=== PATIENT | male | born 2005 | race Caucasian/White ===

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

== ENCOUNTER → 2025-06-03 | Outpatient (CLI) | payer OTHER ==
--- NOTE | 2025-06-05 11:35 | MR ---
INDICATION: Patient age:Male; 20 years old; Reason for study: K11.8; H. COMPARISON: Cervical spine radiograph 07/15/2008, ultrasound 12/08/2008. TECHNIQUE: Multi planar, multi sequence imaging was performed of the neck soft tissues. The patient was given 9 cc of Gadavist intravenously. FINDINGS: The visualized brain parenchyma is intact. Orbits appear intact. Visualized paranasal sinuses appear aerated and developed. Skull base appears intact. The sella turcica and cavernous sinuses appears unr emarkable and symmetric. The mastoid air cells are normally aerated and developed. The fossa of Rosenmuller is normal. The exhibitions and collections manager space and parapharyngeal spaces are unremarkable. The submandibular and sublingual space contents appear unremarkable and symmetric. Couple of intrapar otid lymph nodes within the right parotid gland. T2 hyperintense lobulated superficial left parotid g land lesion measuring 2.3 x 1.1 x 1.2 cm. This demonstrates enhancement on postcontrast imaging. Over all appears similar in size to prior ultrasound 12/08/2008. Additional anterior superficial left paroti d 0.7 cm enhancing focus. Probable lymph node. No discrete Stensen duct dilation identified. The epiglottis, aryepiglottic folds and piriform sinuses are normal. The vallecula appears normal. Th e left ventricular normal. The thyroid lobes appear unremarkable. The carotid space contents appear u nremarkable. The perivertebral space is normal. The supraclavicular regions appear unremarkable. The visualized upper lungs appear unremarkable. Couple of mildly prominent but subcentimeter left neck lymph nodes. The cervical vertebral bodies do have preserved heights and alignment. The cervical spinal cord demo nstrates a normal appearance. IMPRESSION: 1. Enhancing superficial left parotid gland 1.8 cm lesion. Overall appears similar in size to prior ultrasound 12/08/2008. 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 2. Small probable bilateral intraparotid lymph nodes. [facility], , 06/05/2025 11:33 AM
== END | disposition home or self-care (01) ==
LOC: RADMRIMAIN 21:15
PROVIDERS: ATTEND Family Medicine
DX: K11.8 Other diseases of salivary glands (principal)
CPT/HCPCS: 70543; A9585